=== PATIENT | female | born 1980 | race Caucasian/White ===

== ENCOUNTER 2017-01-25 07:11 | Emergency (ER) | payer OTHER ==
[2017-01-25 07:25] VITALS: BP 159/111
--- NOTE | 2017-01-25 07:37 | UC ---
Shoulder Pain HPI - HPI Summary HPI Summary: FELT LEFT SHOULDER POP WHILE DOING ROPE SLAMS AT THE GYM YESTERDAY. NOW HAS PAIN. BETTER WITH IBUPROFEN. - History of Current Complaint Chief Complaint: UCUpperExtremity Stated Complaint: SHOULDER INJURY Time Seen by Provider: 01/25/17 07:26 Hx Obtained From: Patient Hx Last Menstrual Period: may 05 Onset/Duration: Sudden Onset, Lasting Hours, Still Present Timing: Constant Severity Initially: Moderate Severity Currently: Moderate Pain Intensity: 7 Pain Scale Used: 0-10 Numeric Character: Sharp Aggravating Factor(s): Movement Alleviating Factor(s): Rest, OTC Meds - IBUPROFEN Associated Signs And Symptoms: Positive: Negative Related History: Dominant Hand Right - Allergies/Home Medications Allergies/Adverse Reactions: Allergies Allergy/AdvReac Type Severity Reaction Status Date / Time No Known Allergies Allergy Verified 05/21/16 18:01 PMH/Surg Hx/FS Hx/Imm Hx Previously Healthy: Yes - Surgical History Surgical History: Yes Surgery Procedure, Year, and Place: Appendectomy. x3 - Family History Known Family History: Positive: Hypertension - Social History Alcohol Use: Rare Substance Use Type: None Smoking Status (MU): Never Smoked Tobacco Review of Systems Constitutional: Negative Respiratory: Negative Cardiovascular: Negative Gastrointestinal: Negative Musculoskeletal: Arthralgia All Other Systems Reviewed And Are Negative: Yes Physical Exam Triage Information Reviewed: Yes Appearance: Well-Appearing, No Pain Distress, Well-Nourished Vital Signs: Initial Vital Signs Temp 98.2 F 01/25/17 07:18 Pulse 95 01/25/17 07:18 Resp 16 01/25/17 07:18 BP 159/111 01/25/17 07:18 Pulse Ox 98 01/25/17 07:18 Vital Signs Reviewed: Yes Eyes: Positive: Conjunctiva Clear ENT: Positive: Hearing grossly normal Neck: Positive: Supple Respiratory: Positive: No respiratory distress, No accessory muscle use Cardiovascular: Positive: Pulses Normal Abdomen Description: Positive: Soft Musculoskeletal: Positive: ROM Intact, No Edema, Other: - NEGATIVE EMPTY CAN, WYMAN AND CROSS ARM TESTS Neurological: Positive: Alert Psychological: Positive: Age Appropriate Behavior Skin: Negative: rashes Shoulder Course/Dx - Differential Dx/Diagnosis Differential Diagnosis/HQI/PQRI: Bursitis, Fracture (Closed), Rotator Cuff Injury Provider Diagnoses: LEFT SHOULDER SPRAIN Discharge - Discharge Plan Condition: Stable Disposition: HOME Patient Education Materials: Shoulder Sprain (ED) Referrals: Virginia Coe MD [Primary Care Provider] - If Needed Additional Instructions: SLING FOR COMFORT. OTC MEDS NEEDED. REST, ICE. YOU SHOULD NOTICE SIGNIFICANT IMPROVEMENT OVER THE NEXT SEVERAL DAYS AND THEN COMPLETE RESOLUTION WITHIN SEVERAL WEEKS. FOLLOW-UP WITH PCP IF YOU DO NOT IMPROVE EXPECTED.
== END 2017-01-25 07:54 | disposition home or self-care (01) ==
LOC: UCEAST 07:11
DX: S43.402A Unspecified sprain of left shoulder joint, initial encounter (principal); X50.3XXA Overexertion from repetitive movements, initial encounter; Y93.B9 Activity, other involving muscle strengthening exercises; Y92.89 Other specified places as the place of occurrence of the external cause; R03.0 Elevated blood-pressure reading, without diagnosis of hypertension
CPT/HCPCS: 99212; G0463

== ENCOUNTER 2018-05-08 08:58 | Emergency (ER) | payer OTHER ==
--- NOTE | 2018-05-08 11:42 | RAD ---
INDICATION: Neck pain, trauma. COMPARISON: There are no prior studies available for comparison. TECHNIQUE: 3 views of the cervical spine were obtained including lateral, AP and open-mouth odontoid views. FINDINGS: C1-C7 are visualized. There is straightening of the cervical spine with loss of the normal cervical lordosis. No prevertebral soft tissue swelling or fracture is seen. There is mild disc space narrowing and uncinate process spurring present at the C5-C6 level. The remaining disc spaces appear maintained. IMPRESSION: STRAIGHTENING OF THE CERVICAL SPINE, NO EVIDENCE FOR FRACTURE OR SUBLUXATION.
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
[2018-05-08 12:52] VITALS: BP 174/121
== END 2018-05-08 13:08 | disposition home or self-care (01) ==
LOC: ED 08:58
DX: M54.2 Cervicalgia (principal); V89.2XXA Person injured in unspecified motor-vehicle accident, traffic, initial encounter; Y92.410 Unspecified street and highway as the place of occurrence of the external cause
CPT/HCPCS: 72040; 99282

== ENCOUNTER 2018-11-20 13:40 | Emergency (ER) | payer OTHER ==
[2018-11-20 14:23] VITALS: BP 150/80
--- NOTE | 2018-11-20 14:25 | UC ---
Respiratory Complaint HPI - HPI Summary HPI Summary: 38 yo female presents with cough for 1 week. Intermittently productive with yellow/green phlegm. Some sinus congestion and post nasal drip. Trouble sleeping due to cough. Has not been taking anything OTC. Denies fever, chills, sore throat, SOB, chest pain. - History of Current Complaint Chief Complaint: UCRespiratory Stated Complaint: COUGH Time Seen by Provider: 11/20/18 14:24 Hx Obtained From: Patient Hx Last Menstrual Period: 4 weeks Onset/Duration: Gradual Onset Severity Initially: Mild Severity Currently: Moderate Pain Intensity: 5 Pain Scale Used: 0-10 Numeric Character: Cough: Productive - Allergies/Home Medications Allergies/Adverse Reactions: Allergies Allergy/AdvReac Type Severity Reaction Status Date / Time No Known Allergies Allergy Verified 11/20/18 14:23 PMH/Surg Hx/FS Hx/Imm Hx - Additional Past Medical History Additional PMH: None Other History Of: Negative For: Anticoagulant Therapy - Surgical History Surgical History: Yes Surgery Procedure, Year, and Place: Appendectomy. x3 - Family History Known Family History: Positive: Hypertension - Social History Occupation: Employed Full-time Lives: With Family Alcohol Use: Rare Substance Use Type: None Smoking Status (MU): Never Smoked Tobacco Review of Systems All Other Systems Reviewed And Are Negative: Yes Constitutional: Positive: Negative Skin: Positive: Negative Eyes: Positive: Negative ENT: Positive: Nasal Discharge Respiratory: Positive: Cough Cardiovascular: Positive: Negative Gastrointestinal: Positive: Negative Neurovascular: Positive: Negative Neurological: Positive: Negative Psychological: Positive: Negative Physical Exam - Summary Physical Exam Summary: GENERAL: NAD. WDWN. No pain distress. SKIN: No rashes, sores, lesions, or open wounds. HEENT: Head: AT/NC Eyes: EOM intact. Conjunctiva clear without inflammation or discharge. Ears: Hearing grossly normal. TMs intact, no bulging, erythema, or edema. Nose: Nasal mucosa pink and moist. NTTP maxillary and frontal sinus. Throat: Posterior oropharynx without exudates, erythema, or tonsillar enlargement. Uvula midline. NECK: Supple. Nontender. No lymphadenopathy. CHEST: CTAB. No r/r/w. No accessory muscle use. Breathing comfortably and in no distress. CV: RRR. Without m/r/g. Pulses intact. Cap refill <2seconds NEURO: Alert. PSYCH: Age appropriate behavior. Triage Information Reviewed: Yes Vital Signs: Initial Vital Signs Temp 99.3 F 11/20/18 14:13 Pulse 95 11/20/18 14:13 Resp 17 11/20/18 14:13 BP 150/80 11/20/18 14:13 Pulse Ox 100 11/20/18 14:13 Vital Signs Reviewed: Yes UC Diagnostic Evaluation - Laboratory O2 Sat by Pulse Oximetry: 100 Respiratory Course/Dx - Course Course Of Treatment: Bronchitis - Differential Dx/Diagnosis Provider Diagnosis: Bronchitis Discharge - Sign-Out/Discharge Documenting (check all that apply): Patient Departure All imaging exams completed and their final reports reviewed: No Studies - Discharge Plan Condition: Stable Disposition: HOME Prescriptions: Azithromycin TAB* [Zithromax TAB (Z-JOSE L) 250 mg #6 tabs] 2 tab PO .TODAY, THEN 1 DAILY #1 jose l Benzonatate CAP* [Tessalon 100 MG CAP*] 100 mg PO TID PRN #30 cap PRN Reason: Cough Codeine Phosphate/Guaifenesin [Guaifen-Codeine 100-10 mg/5 ml] 5 ml PO BEDTIME PRN #35 ml MDD 5mL PRN Reason: Cough Patient Education Materials: Acute Bronchitis (ED) Referrals: Virginia Coe MD [Primary Care Provider] - Additional Instructions: If you develop a fever, shortness of breath, chest pain, new or worsening symptoms - please call your PCP or go to the ED. Your blood pressure was high at todays visit. Please see your primary provider within 4 weeks for recheck and re-evaluation. - Billing Disposition and Condition Condition: STABLE Disposition: Home
== END 2018-11-20 14:45 | disposition home or self-care (01) ==
LOC: UCEAST 13:40
DX: J40 Bronchitis, not specified as acute or chronic (principal)
CPT/HCPCS: 99212; G0463

== ENCOUNTER 2019-04-15 07:59 | Emergency (ER) | payer OTHER ==
[2019-04-15 08:31] VITALS: BP 160/90
--- NOTE | 2019-04-15 08:45 | UC ---
Ear Complaint HPI - HPI Summary HPI Summary: Patient presents to urgent care with 24 hours of progressive right ear pain. Patient states she's had head congestion related to allergies progressed. Patient takes Claritin (no decongestant) daily. Patient states her nose has been runny and she's had postnasal drip. No cough. No fevers or chills. Patient states yesterday she little bit of pain in her ear and is a good antibiotic much worse. Patient took Motrin yesterday. No analgesia today. Patient without a cough shortness of breath. No abdominal pain. No nausea/ vomiting/diarrhea. Patient denies sick contacts. Patient's medications reviewed this visit. - History of Current Complaint Chief Complaint: UCEar Stated Complaint: EAR PAIN Time Seen by Provider: 04/15/19 08:15 Hx Obtained From: Patient Hx Last Menstrual Period: 04/05/19 Pain Intensity: 9 - Allergies/Home Medications Allergies/Adverse Reactions: Allergies Allergy/AdvReac Type Severity Reaction Status Date / Time No Known Allergies Allergy Verified 04/15/19 08:13 PMH/Surg Hx/FS Hx/Imm Hx - Additional Past Medical History Additional PMH: seasonal allergies Previously Healthy: Yes Other History Of: Negative For: Anticoagulant Therapy - Surgical History Surgical History: Yes Surgery Procedure, Year, and Place: Appendectomy. x3 - Family History Known Family History: Positive: Unknown, Hypertension, Non-Contributory - Social History Lives: With Family Alcohol Use: Rare Substance Use Type: None Smoking Status (MU): Never Smoked Tobacco Review of Systems All Other Systems Reviewed And Are Negative: Yes Constitutional: Positive: Negative Skin: Positive: Negative Eyes: Positive: Negative ENT: Positive: Ear Ache, Nasal Discharge, Sinus Congestion Respiratory: Positive: Negative Physical Exam - Summary Physical Exam Summary: Vital Signs Reviewed: Yes A+Ox3, no distress Eyes: Conjunctiva Clear, ALEXANDER. EOM intact and full ENT: Hearing grossly normal right TM ++ fluid, erythema no drainage, left tm wnl. turbinates inflammed and boggy, + PND, no exudate, no erythema Neck: Positive: Supple Respiratory: Positive: No respiratory distress, No accessory muscle use + CTA throughout no w/r Cardiovascular: RRR nl s1, s2 no m/r CBT <2 sec abd soft + BS nt/nd no guarding, no distension Musculoskeletal Exam: BAUM x 4 without difficulty Strength Intact, ROM Intact Neurological: Positive: Alert, + sensation throughout Psychological: Positive: Normal Response To Family Skin: Positive: no rash, no ecchymosis Triage Information Reviewed: Yes Vital Signs: Initial Vital Signs Temp 98 F 04/15/19 08:10 Pulse 95 04/15/19 08:10 Resp 16 04/15/19 08:10 BP 00/00 04/15/19 08:10 Pulse Ox 100 04/15/19 08:10 Ear Complaint Course/Dx - Course Course Of Treatment: Patient presents to urgent care reporting progressive right ear pain for 24 hours. Patient denies nausea or vomiting. Patient does have some head congestion related to allergies. Patient's been taking Claritin. Patient took analgesia yesterday. No analgesia today. On exam patient was noted to have an elevated blood pressure 150/110 manual. Patient states typically when she was her doctor's office her blood pressure is high. Patient has not seen a doctor in over a year. Patient states in the past she has not had blood pressure issues in the primary's office. Patient did have elevated blood pressure during . Discussed with patient risks of high blood pressure. Patient will schedule follow-up with primary care provider. Pt does not have DUNCAN , vision changes, chest pain, shortness of breath, paresthesia Secondly patient on exam was noted to have right otitis media. We will start him on Augmentin. Flonase. Discussed with patient Motrin Tylenol. Avoid decongestants. Hydrate. Strict return precautions. Patient comfortable in agreement with plan. - Differential Dx/Diagnosis Provider Diagnosis: Otitis media, High blood pressure Discharge - Sign-Out/Discharge Documenting (check all that apply): Patient Departure All imaging exams completed and their final reports reviewed: No Studies - Discharge Plan Condition: Stable Disposition: HOME Prescriptions: Amoxicillin/Clavulanate TAB* [Augmentin TAB 875*] 875 mg PO BID #20 tab Fluticasone NASAL SPRAY 50MCG* [Flonase NASAL SPRAY 50MCG*] 2 spray BOTH NARES DAILY #1 btl Patient Education Materials: Ear Infection (ED) Referrals: Virginia Coe MD [Primary Care Provider] - Additional Instructions: - Okay to alternate ibuprofen (Advil, Motrin) and Tylenol every 3 hours for pain. Take with food. Do NOT take for more than 4-5 days - Take antibiotics as prescribed - continue to take claritin daily - use nasal spray as prescribed - humidify the air in the room where you sleep - boil water, run a hot steam shower, vaporizer, cups of water by heat register - be careful with decongestants as this may increase your blood pressure -as discussed, your blood pressure was elevated today - it is recommended you contact your doctor on Tuesday to schedule a follow-up appointment - Contact your doctor to arrange a follow-up appointment as needed - Billing Disposition and Condition Condition: STABLE Disposition: Home
== END 2019-04-15 09:06 | disposition home or self-care (01) ==
LOC: UCEAST 07:59
DX: H66.91 Otitis media, unspecified, right ear (principal); R03.0 Elevated blood-pressure reading, without diagnosis of hypertension
CPT/HCPCS: 99212; G0463

== ENCOUNTER 2019-09-29 09:11 | Emergency (ER) | payer OTHER ==
[2019-09-29 09:27] LABS: ABS Eosinophils 0.3 10^3/ul (0-0.6); ABS Lymphocytes 2.4 10^3/ul (1.0-4.8); ABS Monocytes 0.4 10^3/ul (0-0.8); ABS Neutrophils 2.9 10^3/ul (1.5-7.7); Eosinophil % 4.2 %; Hematocrit 36 % (35-47); Hemoglobin 12.1 g/dL (12.0-16.0); Lymphocyte % 40.2 %; Mean Corpuscular HGB Conc 34 g/dL (31-36); Mean Corpuscular Hemoglobin 26 pg (27-31); Mean Corpuscular Volume 78 fL (80-97); Mean Platelet Volume 8.4 fL (7.4-10.4); Platelet Count 238 10^3/uL (150-450); Red Blood Count 4.56 10^6 /uL (3.70-4.87); Red Cell Distribution Width 15 % (10-15)
[2019-09-29 09:32] LABS: INR 0.97 (0.82-1.09)
--- NOTE | 2019-09-29 09:40 | ED ---
HPI Chest Pain - HPI Summary HPI Summary: This patient is a 39 year old F presenting to [facility] with a chief complaint of CP on left side going to arm since last night, 09/29/19. Patient reports she was sick 2 weeks ago when she visited a doctor for a fever, chills, and sinus/head symptoms. Pt reports she had a high BP when she visited doctor and was put on a diuretic. Pt reports she felt sick on the medications and had a very low BP due to them. Pt reports she came off her medications since 3 days ago and has been monitoring her BP since then. Pt reports she was exercising last night. After exercising, she started feeling a slight CP at rest that was nor present during exercise. She reports continued mild CP. Denies SOB, prior experience of similar symptoms. Denies doing anything strenuous on her arms during gym last night but did do upper body workout 2 days ago. No hx DVT/PE, not a smoker, no OCPs. No hx NE. - History of Current Complaint Chief Complaint: EDChestPainROMI Time Seen by Provider: 09/29/19 09:22 Hx Obtained From: Patient Hx Last Menstrual Period: 04/05/19 Onset/Duration: Started Hours Ago, Still Present Timing: Constant Current Severity: Mild Pain Intensity: 2 Pain Scale Used: 0-10 Numeric Chest Pain Location: Left Anterior Chest Pain Radiates To:: Arm Aggravating Factor(s): Nothing Alleviating Factor(s): Nothing Associated Signs and Symptoms: Positive: Other:. Negative: Shortness of Breath , Fever, Chills - Allergy/Home Medications Allergies/Adverse Reactions: Allergies Allergy/AdvReac Type Severity Reaction Status Date / Time No Known Allergies Allergy Verified 09/29/19 09:18 PMH/Surg Hx/FS Hx/Imm Hx Endocrine/Hematology History: Denies: Hx Anticoagulant Therapy, Hx Blood Disorders, Hx Diabetes, Hx Thyroid Disease Cardiovascular History: Denies: Hx Hypertension Respiratory History: Denies: Hx Asthma, Hx Chronic Obstructive Pulmonary Disease (COPD) GI History: Denies: Hx Ulcer - Surgical History Surgery Procedure, Year, and Place: Appendectomy. x3 Infectious Disease History: No Infectious Disease History: Denies: Hx Hepatitis, Hx Human Immunodeficiency Virus (HIV), Traveled Outside the [place] in Last 30 Days - Family History Known Family History: Positive: Hypertension, Non-Contributory - Social History Alcohol Use: Rare Hx Substance Use: No Substance Use Type: Reports: None Hx Tobacco Use: No Smoking Status (MU): Never Smoked Tobacco Review of Systems Positive: Fever, Chills Positive: Other - head/sinus symptoms Positive: Chest Pain Negative: Shortness Of Breath All Other Systems Reviewed And Are Negative: Yes Physical Exam - Summary Physical Exam Summary: Constitutional: Well-developed, Well-nourished, Alert. (-) Distressed Skin: Warm, Dry HENT: Normocephalic; Atraumatic Eyes: Conjunctiva normal Neck: Musculoskeletal ROM normal neck. (-) JVD, (-) Stridor, (-) Nuchal rigidity Cardio: Rhythm regular, tachycardia, Heart sounds normal; Intact distal pulses; Radial pulses are 2+ and symmetric. (-) Murmur Pulmonary/Chest wall: Effort normal. (-) Respiratory distress, (-) Wheezes, (-) Rales Abd: Soft, (-) tenderness, (-) Distension, (-) Guarding, (-) Rebound Musculoskeletal: (-) Edema Lymph: (-) Cervical adenopathy Neuro: Alert, Oriented x3 Psych: Mood and affect Normal Triage Information Reviewed: Yes Vital Signs On Initial Exam: Initial Vitals Temp Pulse Resp BP Pulse Ox 96.9 F 116 16 157/84 99 09/29/19 09:16 09/29/19 09:16 09/29/19 09:16 09/29/19 09:16 09/29/19 09:16 Vital Signs Reviewed: Yes Procedures - Sedation Patient Received Moderate/Deep Sedation with Procedure: No Diagnostics - Vital Signs Vital Signs Temp Pulse Resp BP Pulse Ox 09/29/19 09:16 96.9 F 116 16 157/84 99 - Laboratory Lab Results: Lab Results 09/29/19 Range/Units 09:20 WBC 6.0 (3.5-10.8) 10^3/uL RBC 4.56 (3.70-4.87) 10^6 /uL Hgb 12.1 (12.0-16.0) g/dL Hct 36 (35-47) % MCV 78 L (80-97) fL MCH 26 L (27-31) pg MCHC 34 (31-36) g/dL RDW 15 (10-15) % Plt Count 238 (150-450) 10^3/uL MPV 8.4 (7.4-10.4) fL Neut % (Auto) 48.6 % Lymph % (Auto) 40.2 % Garrett % (Auto) 6.3 % Eos % (Auto) 4.2 % Baso % (Auto) 0.7 % Absolute Neuts (auto) 2.9 (1.5-7.7) 10^3/ul Absolute Lymphs (auto) 2.4 (1.0-4.8) 10^3/ul Absolute Monos (auto) 0.4 (0-0.8) 10^3/ul Absolute Eos (auto) 0.3 (0-0.6) 10^3/ul Absolute Basos (auto) 0.0 (0-0.2) 10^3/ul Absolute Nucleated RBC 0.0 10^3/ul Nucleated RBC % 0.0 Result Diagrams: 09/29/19 09:20 09/29/19 09:20 Lab Statement: Any lab studies that have been ordered have been reviewed, and results considered in the medical decision making process. - Radiology Chest X-Ray Radiology Interpretation Completed By: Radiologist Summary of Radiographic Findings: Per radiologist,. NO ACTIVE CARDIOPULMONARY DISEASE. ED physician has reviewed this imaging report. - EKG 09 Cardiac Rate: NL - 105 BPM Summary of EKG Findings: EKG taken at 09 reveals rate of 105 BPM sinus tachycardia, nml axis, nml intervals. No STEMI. No acute changes. Re-Evaluation - Re-Evaluation First Eval Re-Evaluation Time: 10:15 Comment: Normal labs including D dimer, trop. CXR neg for acute process. EKG sinus tach. Updated on plan for discharge Chest Pain Course/Dx - Course Course Of Treatment: 39-year-old female with a recent upper respiratory infection presents with left-sided chest pain. - physical exam of the well- appearing female, heart rate in the low 100s otherwise vital stable. Chest Pain DDX: The patient is well appearing. Given the patient's clinical presentation, highest on differential is atypical CP. Although less likely, differential also includes the following: --Pneumothorax: Equal breath sounds, story inconsistent since gradual onset of symptoms. CXR shows no evidence of pneumothorax. Unlikely. --Cardiac tamponade: The history and physical are not concerning for tamponade. No Pulsus Paradoxus, no tachypnea. Unlikely. -- Mediastinitis or esophageal rupture: The history is not consistent, as the patient has had no recent history of significant wretching, instrumentation, or mediastinal surgeries. Unlikely. --Aortic dissection: The patient does not describe the classical tearing chest pain radiating into the back, and the CXR does not show mediastinal widening or other signs of aortic dissection. Unlikely. --PE: Vitals wnl (not hypoxic, tachycardic or tachypneic). Wells low risk, d dimer neg. --ACS: The initial EKG shows no ischemic changes. The initial troponin is not elevated. Heart score - HEART Score. Based on a HEART score of 1 the patient has a low risk (<2% chance) of major adverse cardiac event within the next 6 weeks. I explained to the patient that based on the work -up today, her risk of heart attack is low and that he/she will be discharged with outpatient follow-up. Strict return precautions were discussed regarding worsening chest pain, new / atypical pain, shortness of breath, or any other serious concerns. Patient endorsed understanding and has no questions at this time. - Diagnoses Provider Diagnoses: Chest pain Discharge ED - Sign-Out/Discharge Documenting (check all that apply): Patient Departure - discharge - Discharge Plan Condition: Stable Disposition: HOME Patient Education Materials: Chest Pain (ED) Referrals: Virginia Coe MD [Primary Care Provider] - Additional Instructions: You were seen in the emergency department for chest pain. Her EKG, heart tracing was normal. Your troponin (heart enzyme) and labs were unremarkable. If any studies were not completed at the time of discharge you will be called with the relevant results. Please follow up with your primary care doctor in next 2-3 days and return to emergency department for worsening chest pain, trouble breathing, passing out, or concerning symptoms. It was a pleasure taking care of you today. - Billing Disposition and Condition Condition: STABLE Disposition: Home - Attestation Statements Document Initiated by Scribe: Yes Documenting Scribe: Geraldine Isabel Provider For Whom Rico is Documenting (Include Credential): Dr. Sandy Pratt MD Scribe Attestation: IGeraldine, scribed for Dr. Sandy Pratt MD on 09/29/19 at 1027. Scribe Documentation Reviewed: Yes Provider Attestation: The documentation as recorded by the scribe, Geraldine Isabel accurately reflects the service I personally performed and the decisions made by me, Dr. Sandy Pratt MD Status of Scribe Document: Viewed
[2019-09-29 09:44] LABS: ALT 15 U/L (7-52); AST 22 U/L (13-39); Albumin 4.1 g/dL (3.2-5.2); Albumin/Globulin Ratio 1.4 (1-3); Alkaline Phosphatase 77 U/L (34-104); Anion Gap 5 mmol/L (2-11); BUN/Creatinine Ratio 12.2 (8-20); Blood Urea Nitrogen 10 mg/dL (6-24); CO2 Carbon Dioxide 32 mmol/L (22-32); Calcium 9.2 mg/dL (8.6-10.3); Chloride 103 mmol/L (101-111); EGFR African American 94.4 (>60); Globulin 2.9 g/dL (2-4); Glucose 150 mg/dL (70-100); Potassium 3.5 mmol/L (3.5-5.0); Sodium 140 mmol/L (135-145)
[2019-09-29 09:46] LABS: Troponin I 0.01 ng/mL (<0.04)
--- OUTSIDE RECORDS SUMMARY | 2019-09-29 09:48 | XMS REPORT | Summary of Care ---
:1980 Author Organization [facility] Address [address] [place] [address] Care Team Providers Name Role Phone Virginia Coe Primary Care Provider Reason for Visit Reason Comments Congestion stuffy and runny nose, cough, sometimes productive, yellow phelgm, right chest pain when laying on right side. 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 IBUPROFEN 200 Take 600 mg by 0 Active POIndications: Hip mouth NEEDED. strain, left, initial encounter fluticasone (FLONASE) 50 Holland 2 Sprays 1 Bottle 1 09/11/2019 Active MCG/ACT Nasal in nose DAILY. SuspensionIndications: Acute URI benzonatate (TESSALON Take 1 Cap by 42 Cap 0 09/11/2019 Active PERLES) 100 MG Oral mouth THREE CapIndications: Acute TIMES DAILY. URI chlorthalidone Take 1 Tab by 30 Tab 0 09/11/2019 Active (HYGROTON) 25 MG Oral mouth DAILY. TabIndications: Hypertension, unspecified type potassium chloride Take 1 Cap by 60 Cap 0 09/11/2019 Active (MICRO-K) 10 MEQ Oral mouth DAILY. Cap CRIndications: Hypertension, unspecified type documented as of this encounter (statuses as of 09/11/2019) Active Problems Problem Noted Date Sprain of neck 10/11/2014 Sprain of thoracic region 10/11/2014 Pre-eclampsia 06/25/2014 BMI 40.0-44.9, adult 08/23/2011 Low HDL (under 40) 08/23/2011 Other acne 08/23/2011 ENVIRONMENTAL ALLERGIES 08/29/2008 Migraine Headaches 08/29/2008 History of Abdominal Pain, Left Lower Quadrant 08/29/2008 Overview: 05/09/2006, patient states pain occurs around mid-cycle of her menses each month. Has been happening for several months. 07/20/2007, still has some pain. documented as of this encounter (statuses as of 09/11/2019) Resolved Problems Problem Noted Date Resolved Date State 07/20/2007 06/25/2014 Overview: 3 months at this time. documented as of this encounter (statuses as of 09/11/2019) Social History Tobacco Use Types Packs/Day Years Used Date Never Smoker Smokeless Tobacco: Never Used Alcohol Use Drinks/Week oz/Week Comments No 0 Standard drinks or equivalent 0.0 Sex Assigned at Date Recorded Not on file Job Start Date Occupation Industry Not on file Not on file Not on file Travel History Travel Start Travel End No recent travel history available. documented as of this encounter Last Filed Vital Signs Vital Sign Reading Time Taken Comments Blood Pressure 172/100 09/11/2019 9:02 AM EDT Pulse 92 09/11/2019 8:46 AM EDT Temperature 37.7 09/11/2019 8:46 AM EDT C (99.9 F) Respiratory Rate 20 09/11/2019 8:46 AM EDT Oxygen Saturation 97% 09/11/2019 8:46 AM EDT Inhaled Oxygen Concentration - - Weight 122.5 kg (270 lb) 09/11/2019 8:46 AM EDT Height 170.2 cm (5' 7") 09/11/2019 8:46 AM EDT Body Mass Index 42.29 09/11/2019 8:46 AM EDT documented in this encounter Patient Instructions Patient InstructionsPerla Gutiérrez NP - 09/11/2019 10:00 AM EDT Start chlorthalidone once daily for your blood pressure. Potassium one tablet daily as well (chlorthalidone can lower your potassium levels). Discuss with Dr. Coe rechecking labs in one week for potassium level. Please check your blood pressures at home and write them down. The top number should be below 140 and the bottom number should be below 90. Please bring these blood pressure readings to your follow up appointment. Appointment is with Dr. Coe on 09/18. If you have any concerning symptoms such as squeezing, pressure or pain in your chest; discomfort orpain in your back, neck, jaw, stomach, or arm; shortness of breath; nausea or vomiting; lightheadedness or a sudden cold sweat - please go immediately to the emergency room. Respiratory Infection: 1) Take Tylenol and Motrin over the counter as needed for pain and symptom relief 2) Flonase 2 sprays in each nostril daily 3) Tessalon Perles to relieve the cough - you can take this up to three times daily as needed but you may want to take this just at night 4) Get plenty of rest and fluids 5) Please call or return if symptoms worsen or fail to improve You have been prescribed an antibiotic for treatment of your condition. It is important to rememberthat antibiotics treat bacterial infections. In order for them to be effective - you must take ALL of the medication and take it exactly as prescribed. FINISH THE MEDICATION - even if you are feelingbetter. Antibiotics can cause stomach upset and diarrhea. You can help decrease these symptoms by also taking a probiotic while using the medication (Align, Culturelle or the like). Take with food if recommended by the pharmacist. If you are not feeling better in 3-5 days - call or return to the office. Upper Respiratory Infection LIVESTOCK BUYER: An upper respiratory infection is also called a common cold. It can affect your nose, throat, ears,and sinuses. Common signs and symptoms include the following: Cold symptoms are usually worst for the first 3 to5 days. You may have any of the following: Runny or stuffy nose Sneezing and coughing Sore throat or hoarseness Red, watery, and sore eyes Fatigue Chills and fever Headache, body aches, or sore muscles Seek care immediately if: You have severe headaches, a stiff neck, or eye pain when you look at bright light. You have chest pain or trouble breathing. Contact your healthcare provider if: You have a fever over 102F (39C). Your sore throat gets worse or you see white or yellow spots in your throat. Your symptoms get worse after 3 to 5 days or your cold is not better in 14 days. You have a rash anywhere on your skin. You have large, tender lumps in your neck. You have thick, green or yellow drainage from your nose. You cough up thick yellow, green, mcqueen, or bloody mucus. You have vomiting for more than 24 hours and cannot keep fluids down. You have a bad earache. You have questions or concerns about your condition or care. Treatment for a cold: There is no cure for the common cold. Colds are caused by viruses and do not get better with antibiotics. Most people get better in 7 to 14 days. You may continue to cough for 2 to 3 weeks. The following may help decrease your symptoms: Decongestants help reduce nasal congestion and help you breathe more easily. If you take decongestant pills, they may make you feel restless or not able to sleep. Do not use decongestant sprays for more than a few days. Cough suppressants help reduce coughing. Ask your healthcare provider which type of cough medicine is best for you. NSAIDs , such as ibuprofen, help decrease swelling, pain, and fever. NSAIDs can cause stomach bleeding or kidney problems in certain people. If you take blood thinner medicine, always ask your healthcare provider if NSAIDs are safe for you. Always read the medicine label and follow directions. Acetaminophen decreases pain and fever. It is available without a doctor' s order. Ask how muchto take and how often to take it. Follow directions. Acetaminophen can cause liver damage if not taken correctly. Manage your cold: Use a humidifier or vaporizer. Use a cool mist humidifier or a vaporizer to increase air moisture in your home. This may make it easier for you to breathe and help decrease your cough. Gargle with warm salt water to help your sore throat feel better. Make salt water by adding teaspoon salt to 1 cup warm water. You may also suck on hard candy or throat lozenges. You may usea sore throat spray. Use saline nasal drops to help relieve your congestion. Drink liquids as directed. Liquids help keep your air passages moist and help you cough up mucus. Ask how much liquid to drink each day and which liquids are best for you. Rest as much as possible. Slowly start to do more each day. Prevent spreading your cold to others: Try to stay away from other people during the first 2 to 3 days of your cold when it is more easily spread. Do not share food or drinks. Do not share hand towels with household members. Wash your hands often, especially after you blow your nose. Turn away from other people and cover your mouth and nose with a tissue when you sneeze or cough. Follow up with your healthcare provider as directed: Write down your questions so you remember to ask them during your visits. 2016 [employer] Information is for End User's use only and may not be sold, redistributed or otherwise used for commercial purposes. All illustrations and images included in CareNotes are the copyrighted property of [employer]. or [employer] ([employer]). The above information is an financial aid administrator only. It is not intended as medical advice for individual conditions or treatments. Talk to your doctor, nurse or pharmacist before following any medical regimen to see if it is safe and effective for you. documented in this encounter Progress Notes Perla Gutiérrez NP - 09/11/2019 10:00 AM EDT PATIENT: Caitlyn Floyd : 1980 DATE OF SERVICE: 09/11/2019 CHIEF COMPLAINT: Chief Complaint Patient presents with Congestion stuffy and runny nose, cough, sometimes productive, yellow phelgm, right chest pain when laying onright side. Ear Problem right ear pain, Subjective HISTORY OF PRESENT ILLNESS: Caitlyn Floyd is a 39-y.o. female. HPI Sick since Tuesday night, sinus pressure and pain, fever (tmax 100 axillary), cough, pain in right chest when coughing or when laying on right side. Right ear hurts but not as bad as last time she hadan ear infection. The last few times she she went to urgent care her blood pressure was 160/100's.(160/90 in March 2019). She thinks her blood pressure goes up when she is sick. Has been taking ibuprofen but didn't take any this morning due to having fasting labs done this am. Coughing is really only bad when laying down. Past Medical History: Diagnosis Date Acute coronary syndrome (HCC) ENVIRONMENTAL ALLERGIES 08/29/2008 History of Abdominal Pain, Left Lower Quadrant 08/29/2008 05/09/2006, patient states pain occurs around mid-cycle of her menses each month. Has been happening for several months. 07/20/2007, still has some pain. Migraine Headaches 08/29/2008 Obesity (BMI 30.0-39.9) 08/29/2008 03/13/2007, pre-, BMI: 36.88 07/20/2007, 3-months , BMI: 39.24 State 07/20/2007 3 months at this time. Family History Problem Relation Age of Onset Hypertension Father High Cholesterol Father Cancer Brother Dixon sarcoma Current Outpatient Medications Medication Sig benzonatate (TESSALON PERLES) 100 MG Oral Cap Take 1 Cap by mouth THREE TIMES DAILY. chlorthalidone (HYGROTON) 25 MG Oral Tab Take 1 Tab by mouth DAILY. fluticasone (FLONASE) 50 MCG/ACT Nasal Suspension Holland 2 Sprays in nose DAILY. IBUPROFEN 200 PO Take 600 mg by mouth NEEDED. Loratadine (CLARITIN) 10 MG Oral Cap Take 1 Tab by mouth DAILY NEEDED. potassium chloride (MICRO-K) 10 MEQ Oral Cap CR Take 1 Cap by mouth DAILY. No current facility-administered medications for this visit. Allergies Allergen Reactions Seasonal Respiratory Reaction Social History Socioeconomic History Marital status: Single Spouse name: Not on file Number of children: Not on file Years of education: Not on file Highest education level: Not on file Occupational History Not on file Social Needs Financial resource strain: Not on file Food insecurity: Worry: Not on file Inability: Not on file Transportation needs: Medical: Not on file Non-medical: Not on file Tobacco Use Smoking status: Never Smoker Smokeless tobacco: Never Used Substance and Sexual Activity Alcohol use: No Alcohol/week: 0.0 standard drinks Drug use: No Sexual activity: Yes Partners: Male Lifestyle Physical activity: Days per week: Not on file Minutes per session: Not on file Stress: Not on file Relationships Social connections: Talks on phone: Not on file Gets together: Not on file Attends hinduism service: Not on file Active member of club or organization: Not on file Attends meetings of clubs or organizations: Not on file Relationship status: Not on file Intimate partner violence: Fear of current or ex partner: Not on file Emotionally abused: Not on file Physically abused: Not on file Forced sexual activity: Not on file Other Topics Concern Back Care Not Asked Bike Helmet Not Asked Blood Transfusions Not Asked Caffeine Concern Not Asked Exercise Not Asked Hobby Hazards Not Asked International Travel Not Asked Service Not Asked Occupational Exposure Not Asked Seat Belt Not Asked Self-Exams Not Asked Sleep Concern Not Asked Special Diet Not Asked Stress Concern Not Asked Weight Concern Not Asked Social History Narrative Works at [id number] Over the last 2 weeks, have you been feeling down, depressed, anxious, or hopeless?: 0 Over the past 2 weeks, have you felt little interest or pleasure in doing things ?: 0 REVIEW OF SYSTEMS: Review of Systems Constitutional: Positive for chills, fever and malaise/fatigue. HENT: Positive for congestion, ear pain, sinus pain and sore throat. Respiratory: Positive for cough, sputum production (yellow) and shortness of breath (when moving around too much). Negative for wheezing. Cardiovascular: Positive for chest pain. Negative for palpitations. Gastrointestinal: Negative for abdominal pain, constipation, diarrhea, nausea and vomiting. Genitourinary: Negative for dysuria, frequency and urgency. Musculoskeletal: Negative for joint pain and myalgias. Neurological: Positive for headaches. Negative for dizziness. Objective PHYSICAL EXAM: VITALS: BP (!) 172/100 | Pulse 92 | Temp 99.9 F (37.7 C) (Tympanic) | Resp 20 | Ht 5' 7" (1.702 m) | Wt 270 lb (122.5 kg) | LMP 08/21/2019 ( Approximate) | SpO2 97% | BMI 42.29 kg/m Body mass index is 42.29 kg/m . Physical Exam Vitals signs and nursing note reviewed. Constitutional: General: She is not in acute distress. Appearance: Normal appearance. She is well-developed. She is not ill- appearing or toxic-appearing. HENT: Right Ear: Tympanic membrane, ear canal and external ear normal. No mastoid tenderness. Tympanic membrane is not erythematous, retracted or bulging. Left Ear: Tympanic membrane, ear canal and external ear normal. No mastoid tenderness. Tympanic membrane is not erythematous, retracted or bulging. Nose: Mucosal edema (erythema) and rhinorrhea present. Right Sinus: Maxillary sinus tenderness and frontal sinus tenderness present. Left Sinus: Maxillary sinus tenderness and frontal sinus tenderness present. Mouth/Throat: Mouth: Mucous membranes are moist. Pharynx: Oropharynx is clear. Uvula midline. Posterior oropharyngeal erythema present. No oropharyngeal exudate. Tonsils: No tonsillar exudate. Eyes: Conjunctiva/sclera: Conjunctivae normal. Cardiovascular: Rate and Rhythm: Normal rate and regular rhythm. Heart sounds: Normal heart sounds. Pulmonary: Effort: Pulmonary effort is normal. Breath sounds: Normal breath sounds. Abdominal: Tenderness: There is no right CVA tenderness or left CVA tenderness. Lymphadenopathy: Head: Right side of head: No submental, submandibular or tonsillar adenopathy. Left side of head: No submental, submandibular or tonsillar adenopathy. Cervical: No cervical adenopathy. Right cervical: No superficial cervical adenopathy. Left cervical: No superficial cervical adenopathy. Upper Body: Right upper body: No supraclavicular adenopathy. Left upper body: No supraclavicular adenopathy. Neurological: Mental Status: She is alert. Psychiatric: Behavior: Behavior is cooperative. ASSESSMENT / IMPRESSION: ICD-9-CM ICD-10-CM 1. Acute URI 465.9 J06.9 fluticasone (FLONASE) 50 MCG/ACT Nasal Suspension benzonatate (TESSALON PERLES) 100 MG Oral Cap 2. Hypertension, unspecified type 401.9 I10 COMPREHENSIVE METABOLIC PANEL chlorthalidone (HYGROTON) 25 MG Oral Tab potassium chloride (MICRO-K) 10 MEQ Oral Cap CR AMBULATORY 12 LEAD EKG (GLOBAL) Plan 1. Acute URI - fluticasone (FLONASE) 50 MCG/ACT Nasal Suspension; Holland 2 Sprays in nose DAILY. Dispense: 1 Bottle; Refill: 1 - benzonatate (TESSALON PERLES) 100 MG Oral Cap; Take 1 Cap by mouth THREE TIMES DAILY. Dispense: 42 Cap; Refill: 0 2. Hypertension, unspecified type - COMPREHENSIVE METABOLIC PANEL; Future - chlorthalidone (HYGROTON) 25 MG Oral Tab; Take 1 Tab by mouth DAILY. Dispense : 30 Tab; Refill: 0 - potassium chloride (MICRO-K) 10 MEQ Oral Cap CR; Take 1 Cap by mouth DAILY. Dispense: 60 Cap; Refill: 0 - AMBULATORY 12 LEAD EKG (GLOBAL) She had fasting labs this am - will change BMP to CMP to check kidneys with the hypertension. Start chlorthalidone once daily for your blood pressure. Potassium one tablet daily as well (chlorthalidone can lower your potassium levels). Discuss with Dr. Coe rechecking labs in one week for potassium level. Please check your blood pressures at home and write them down. The top number should be below 140 and the bottom number should be below 90. Please bring these blood pressure readings to your follow up appointment. Appointment is with Dr. Coe on 09/18. If you have any concerning symptoms such as squeezing, pressure or pain in your chest; discomfort orpain in your back, neck, jaw, stomach, or arm; shortness of breath; nausea or vomiting; lightheadedness or a sudden cold sweat - please go immediately to the emergency room. Respiratory Infection: 1) Take Tylenol and Motrin over the counter as needed for pain and symptom relief 2) Flonase 2 sprays in each nostril daily 3) Tessalon Perles to relieve the cough - you can take this up to three times daily as needed but you may want to take this just at night 4) Get plenty of rest and fluids 5) Please call or return if symptoms worsen or fail to improve Author: Perla Gutiérrez NP 09/11/2019 12:20 documented in this encounter Plan of Treatment Date Type Specialty Care Team Description 09/18/2019 Office Visit Internal Medicine [place] oCe MD [address] [place] [address] [phone] Name Type Priority Associated Diagnoses Date/Time COMPREHENSIVE METABOLIC Lab Routine Hypertension, 09/11/2019 8:27 AM PANEL unspecified type EDT Name Type Priority Associated Diagnoses Order Schedule COMPREHENSIVE METABOLIC Lab Routine Hypertension, Expected: 09/11/2019 PANEL unspecified type (Approximate), Expires: 09/11/2020 AMBULATORY 12 LEAD EKG EKG Routine Hypertension, Ordered: 09/11/2019 (GLOBAL) unspecified type Health Maintenance Due Date Last Done Comments INFLUENZA VACCINE (#1) 2019 DEPRESSION SCREENING 09/11/2020 09/11/2019 HPV IMMUNIZATION SERIES Aged Out No longer eligible based on patient's age to complete this topic MENINGOCOCCAL VACCINE IMM Aged Out No longer eligible based on patient's age to complete this topic PNEUMOCOCCAL 0-64 YRS Aged Out No longer eligible based on patient's age to complete this topic documented as of this encounter Goals Goal Patient Goal Associated Recent Patient-Stated? Author Type Problems Progress Blood Pressure Blood Pressure 172/100 No Brisa, < 140/90 (09/11/2019 STEVEN Swift 9:02 AM EDT) Note: This is an individualized treatment (blood pressure) goal for Caitlyn Floyd: Displayed above (on the left) is your goal for blood pressure control. Your most recent blood pressure is also shown above, on the right. You should try to achieve blood pressures that are lower than your goal listed above (on the left). Weight loss vs. 18 mo Lifestyle 0 (09/11/2019 8:46 AM No Jeniffer Ledezma FNP max (lbs) >= 10 EDT) Note: This is an individualized lifestyle goal for Caitlyn Floyd: Your body mass index (BMI) is more than 30. You should lose weight. A reasonable starting goal is to lose 10 pounds. Displayed above is how many pounds you have lost thus far towards your 10 pound weight loss goal. Take all prescribed medications as Self-management Jeniffer Francois FNP directed Note: This is an individualized self-management goal for Caitlyn Floyd: Please take all prescribed medications as directed. 1. Do not skip doses. If you cannot afford your medications, talk with your doctor. 2. Use a pill reminder system such as a pill box if needed. Your pharmacist can help you with this. 3. Contact your Pharmacy 5 days before your medication runs out. If you cannot take your medications for any reasons, talk with your doctor. 4. Please bring all of your medication bottles and inhalers (or a list of all your medications/inhalers) with you to every visit. Potential barriers to meeting all of your care plan goals will continue to be addressed on an ongoing basis. documented as of this encounter Results Not on filedocumented in this encounter Visit Diagnoses Diagnosis Acute URI - Primary Acute upper respiratory infections of unspecified site Hypertension, unspecified type documented in this encounter Insurance Payer Benefit Plan / Subscriber ID Effective Dates Phone Address Type Group [employer]CIAL A[employer] [facility] xxxxxxxxxx 2009-Present [employer] Guarantor Name Account Type Relation to Date of Phone Billing Patient Address Caitlyn Floyd Personal/Family 1980 [phone] ([address]) [address] [phone] [place], [place] (Work) [id number] documented as of this encounter
--- OUTSIDE RECORDS SUMMARY | 2019-09-29 09:48 | XMS REPORT | Summary of Care ---
:1980 Author Organization [facility] Address [address] [address] Care Team Providers Name Role Phone Virginia Coe Primary Care Provider Reason for Visit Reason Comments [facility] Physical Encounter Details Date Type Department Care Team Description 09/18/2019 Office Visit [place] [facility] Virginia Coe MD Routine general medical examination at a health care facility (Primary Dx); Medicine [address] Hypertension, unspecified type; [address] [place] [address] BMI 40.0-44.9, adult (HCC); [place] [address] Lipid disorder; [phone] Low HDL (under 40) Allergies Active Allergy Reactions Severity Noted Date Comments Seasonal Respiratory Reaction 04/06/2016 documented as of this encounter (statuses as of 09/18/2019) Medications Medication Sig Dispensed Refills Start Date End Date Status Loratadine Take 1 Tab 0 Active (CLARITIN) 10 MG by mouth Oral Cap DAILY NEEDED. IBUPROFEN 200 Take 600 mg 0 Active POIndications: Hip by mouth strain, left, NEEDED. initial encounter fluticasone [place] 2 1 Bottle 1 09/11/2019 Active (FLONASE) 50 MCG/ACT Sprays in Nasal nose DAILY. SuspensionIndication s: Acute URI chlorthalidone Take 1 Tab 30 Tab 0 09/11/2019 Active (HYGROTON) 25 MG by mouth Oral TabIndications: DAILY. Hypertension, unspecified type potassium chloride Take 1 Cap 60 Cap 0 09/11/2019 Active (MICRO-K) 10 MEQ by mouth Oral Cap DAILY. CRIndications: Hypertension, unspecified type benzonatate Take 1 Cap 42 Cap 0 09/11/2019 Discontinued (TESSALON PERLES) by mouth 9 (Patient stopped 100 MG Oral THREE TIMES the medication) CapIndications: DAILY. Acute URI documented as of this encounter (statuses as of 09/18/2019) Active Problems Problem Noted Date Sprain of [...] as of this encounter (statuses as of 09/18/2019) Resolved Problems Problem Noted Date Resolved Date State 07/20/2007 06/25/2014 Overview: 3 months at this time. documented as of this encounter (statuses as of 09/18/2019) Social History Tobacco Use Types Packs/Day Years [...] Sign Reading Time Taken Comments Blood Pressure 138/86 09/18/2019 5:26 PM EDT Pulse 104 09/18/2019 5:26 PM EDT Temperature 37.5 09/18/2019 5:26 PM EDT C (99.5 F) Respiratory Rate 18 09/18/2019 5:26 PM EDT Oxygen Saturation 99% 09/18/2019 5:26 PM EDT Inhaled Oxygen Concentration - - Weight 121.1 kg (267 lb) 09/18/2019 5:26 PM EDT Height 170.2 cm (5' 7") 09/18/2019 5:26 PM EDT Body Mass Index 41.82 09/18/2019 5:26 PM EDT documented in this encounter Patient Instructions Patient InstructionsVirginia Ceo MD - 09/18/2019 5:20 PM EDTWeight loss is in the calories - 5- 10 lbs- Keep off - finess- Be active- Most important technique - WRITE IT DOWN Etools - Free websites loseit Fatsecret Myfitnesspal Sparkpeople fooducate Multiple effective diets- I favor the low carb diet- Cut out bread/ rice/ potatoes -etc. Eat meals with lean protein (meat/ fish/ chicken/ low fat cheese) and salad- Fruit is good but in moderation No fruit juice or sweetened sodas/ drinks- 2. Blood pressure - Borderline today - Watch blood pressure at home- And bring in cuff 3. We will check blood pressure at pap visit 4. For the congestion- Getting better - - no antibiotic desired - 5. Tetanus booster - documented in this encounter Progress Notes Virginia Coe MD - 09/18/2019 5:20 PM EDT PATIENT: Caitlyn Floyd DATE: 09/18/2019 Caitlyn Floyd is a 39-y.o. female presents for routine physical exam and Also, she has additional complaints of * 1 HR.A reviewed 2. Sick x 2 weeks- Taking ibuprofen / claritin - flonase - / saline rinse - Not as congrested / still has sore throat / headache - One child Had strep throat 3.lost and gained weight- 4 food elimination trial - Stomach is better- Pian in upper stomach which is better on new diet- 5. Likes to workout - But is in school / work - 6. Blood pressure elevated AT [facility] but ok at home - home cuff matches ours- Patient Active Problem List Diagnosis ENVIRONMENTAL ALLERGIES Migraine Headaches History of Abdominal Pain, Left Lower Quadrant BMI 40.0-44.9, adult (HCC) Low HDL (under 40) Other acne Pre-eclampsia Sprain of neck Sprain of thoracic region Exercize yes No [place]. No cardiopulmonary symptoms as dyspnea, cough. palpitations , or chest pain on exertion. No upper or lower GI complaints as heartburn, abdominal pain, change in bowel habits, blackor bloody stools. No urinary tract symptoms or incontinence. No symptoms as nocturia, discharge No bruising/ bleeding. No neurological complaints as dysphagia, imbalance, vertigo , focal weakness. No insomnia.+ Rested after nights sleep. No depression. Does not stop breathing at night. Current Outpatient Medications Medication Sig chlorthalidone (HYGROTON) 25 MG Oral Tab Take 1 Tab by mouth DAILY. fluticasone (FLONASE) 50 MCG/ACT Nasal Suspension [place] 2 Sprays in nose DAILY. IBUPROFEN 200 PO Take 600 mg by mouth NEEDED. Loratadine (CLARITIN) 10 MG Oral Cap Take 1 Tab by mouth DAILY NEEDED. potassium chloride (MICRO-K) 10 MEQ Oral Cap CR Take 1 Cap by mouth DAILY. No current facility-administered medications for this visit. Social History Socioeconomic History Marital status: Single [...] file Gets together: Not on file Attends quaker service: Not on file Active member of [...] Not Asked Social History Narrative Works at [employer] Family History Problem Relation Age of Onset Hypertension Father High Cholesterol Father Cancer Brother Dixon sarcoma Results for orders placed or performed in visit on 09/11/19 LIPID PROFILE Result Value Ref Range Cholesterol 154 <200 mg/dl HDL Cholesterol 35 (L) >50 mg/dl Triglycerides 88 <150 mg/dl LDL Cholesterol 101 (H) <100 MG/DL Cholesterol / HDL Ratio 4.4 RATIO LDL / HDL Ratio 2.9 Non-HDL Cholesterol 119 0 - 130 MG/DL CBC WITH DIFFERENTIAL Result Value Ref Range WBC Count 5.39 3.98 - 10.04 K/uL RBC Count 4.56 3.93 - 5.22 M/UL Hemoglobin 11.6 11.2 - 15.7 g/dL Hematocrit 37.6 34.1 - 44.9 % MCV 82.5 79.4 - 94.8 FL MCH 25.4 (L) 25.6 - 32.2 PG MCHC 30.9 (L) 32.2 - 35.5 g/dL Platelet Count 239 182 - 369 K/uL MPV 11.2 9.4 - 12.3 FL RDW 13.6 11.7 - 14.4 % Neutrophil % 53.9 34.0 - 71.1 % Lymphocyte % 30.4 19.3 - 51.7 % Monocyte % 9.6 4.7 - 12.5 % Eosinophil % 5.2 0.7 - 5.8 % Basophil % 0.7 0.1 - 1.2 % nRBC % 0.0 0.0 - 0.2 % Neutrophil # 2.90 1.56 - 6.13 K/UL Lymphocyte # 1.64 1.18 - 3.74 K/UL Monocyte # 0.52 0.24 - 0.86 K/UL Eosinophil # 0.28 0.04 - 0.36 K/UL Basophil # 0.04 0.01 - 0.08 K/UL Immature Gran % 0.2 0.0 - 0.4 % Immature Gran # 0.01 0.00 - 0.03 K/uL NRBC # 0.00 0.00 - 0.12 K/uL COMPREHENSIVE METABOLIC PANEL Result Value Ref Range Sodium 140 134 - 145 mmol/L Potassium 3.9 3.5 - 5.1 mmol/L Chloride 106 98 - 107 mmol/L CO2 25 22 - 30 mmol/L Calcium 8.7 8.3 - 10.1 mg/dl Albumin 3.9 3.5 - 5.0 g/dl BUN 7 7 - 17 mg/dl Creatinine 0.7 0.7 - 1.2 mg/dl Glucose 95 70 - 99 mg/dl Total Protein 7.3 6.3 - 8.2 g/dl Total Bilirubin 0.4 0.0 - 1.1 MG/DL AST 24 15 - 46 U/L ALT 19 9 - 52 U/L Alkaline Phosphatase 79 40 - 150 U/L eGFR >60 See Interpretation Below ml/min/1.73ml Sq BUN/Creatinine Ratio 10 6 - 22 RATIO Anion Gap 9 3 - 11 mmol/L A/G Ratio 1.1 0.8 - 2.0 ratio OBJECTIVE: BP 138/86 (BP Location: Right arm, Patient Position: Sitting) | Pulse 104 | Temp 99.5 F (37.5 C) | Resp 18 | Ht 5' 7" (1.702 m) | Wt 267 lb ( 121.1 kg) | LMP 08/21/2019 (Approximate) | SpO2 99% | BMI 41.82 kg/m Gen well Heent: ears TM and canals normal eyes Perrl; EOMI oroph-wnl Neck- no JVD,thyromegaly, bruit or lymphademopathy No supraclavicular, axillary or inguinal lymphadenopathy Lungs-clear to auscultation CV RRR no Murmur, gallop or clilck Breasts-no masses or diimpling (examined supine and sitting) Abd. nontender; no organomegaly, abnormal pulsations , bowel sounds normoactive defer to menses- Ext-no edema; rash, DP +2 skin- no rashes or suspicious lesions Neuro- intellect intact; CN II.XII intact; U&LE-strength wnl gait nl A/P ICD-9-CM ICD-10-CM 1. Routine general medical examination at a health care facility V70.0 Z00.00 2. Hypertension, unspecified type 401.9 I10 3. BMI 40.0-44.9, adult (HCC) V85.41 Z68.41 4. Lipid disorder 272.9 E78.9 5. Low HDL (under 40) 272.5 E78.6 Breast self-exam and bone health recommendations were made Chief Complaint Patient presents with [facility] Wellness Physical Mammo-- Start at age 41 DT PAP has menses - overdo Patient Instructions Weight loss is in the calories - 5- 10 lbs- Keep off - finess- Be active - Most important technique - WRITE IT DOWN Etools - Free websites loseit Fatsecret Myfitnesspal Sparkpeople fooducate Multiple effective diets- I favor the low carb diet- Cut out bread/ rice/ potatoes -etc. Eat meals with lean protein (meat/ fish/ chicken/ low fat cheese) and salad- Fruit is good but in moderation No fruit juice or sweetened sodas/ drinks- 2. Blood pressure - Borderline today - Watch blood pressure at home- And bring in cuff 3. We will check blood pressure at pap visit 4. For the congestion- Getting better - - 5. Tetanus booster - Author: Virginia Coe MD documented in this encounter Plan of Treatment Health Maintenance Due Date Last Done Comments [...] Type Problems Progress Blood Pressure Blood Pressure 138/86 No Brisa, < 140/90 (09/18/2019 STEVEN Swift 5:26 PM EDT) Note: This is an individualized treatment (blood pressure) goal for Caitlyn Floyd: Displayed above (on the left) is your goal for blood pressure control. Your most recent blood pressure is also shown above, on the right. You should try to achieve blood pressures that are lower than your goal listed above (on the left). Weight loss vs. 18 mo Lifestyle 3 (09/18/2019 5:26 PM No Jeniffer Ledezma FNP max (lbs) >= [...] goal. Take all prescribed medications as Self-management No Jeniffer Ledezma FNP directed Note: This is an individualized [...] filedocumented in this encounter Visit Diagnoses Diagnosis Routine general medical examination at a health care facility - Primary Hypertension, unspecified type BMI 40.0-44.9, adult (HCC) Body Mass Index 40.0-44.9, adult Lipid disorder Unspecified disorder of lipoid metabolism Low HDL (under 40) Lipoprotein deficiencies documented in this encounter Insurance Payer Benefit Plan / Subscriber ID Effective Dates Phone Address Type Group [employer]CIAL [employer] [facility] xxxxxxxxxx 2009-Present [employer] Guarantor Name Account Type Relation to Date of Phone Billing Patient Address Caitlyn Floyd Personal/Family 1980 [phone] [address] ([address] [phone] [place], [place] (Work) [id number] documented as of this encounter
[2019-09-29 09:50] LABS: HCG Pregnancy < 0.60 mIU/mL
[2019-09-29 10:52] VITALS: BP 123/77
== END 2019-09-29 10:51 | disposition home or self-care (01) ==
LOC: ED 09:11
DX: R07.9 Chest pain, unspecified (principal); Z90.89 Acquired absence of other organs
CPT/HCPCS: 36415; 71046; 80053; 84484; 84702; 85025; 85379; 85610; 93005; 99282